=== PATIENT | female | born 1965 | race Two or more races ===

== ENCOUNTER 2020-09-08 21:39 | Emergency (ER) | payer MEDICAID ==
[~2020-09-08] VITALS: Ht 154.9 cm; Wt 68.0 kg
--- NOTE | 2020-09-08 22:20 | Emergency Room Report ---
History of Present Illness General Chief Complaint: To Be Triaged Source: Patient Present Illness [facility] This is a 55-year-old female with no past medical history. She presents with chief complaint of shortness of breath. Onset for the last 2 weeks. Only at night. She said it is worse when she lays down. No fever chills but no nausea no vomiting. No coughing. No chest pain. Better with sitting up. No sick contact. She has similar symptom in July. Allergies: Coded Allergies: No Known Allergies (Unverified , 09/08/20) Patient History Past Medical History: see triage record, old chart reviewed Past Surgical History: none Pertinent Family History: none Social History: Denies: smoking Now: No Immunizations: other Reviewed Nursing Documentation: PMH: Agreed; PSxH: Agreed Review of Systems Eye: Denies: eye pain, blurred vision ENT: Denies: ear pain, nose congestion, throat swelling Respiratory: Reports: shortness of breath; Denies: cough Cardiovascular: Denies: chest pain, palpitations Gastrointestinal: Denies: abdominal pain, diarrhea, nausea, vomiting Musculoskeletal: Denies: back pain, joint pain Skin: Denies: rash Neurological: Denies: headache, numbness Endocrine: Denies: increased thirst, increased urine Hematologic/Lymphatic: Denies: easy bruising All Other Systems: negative except mentioned in HPI Physical Exam Is unremarkable Sp02 EP Interpretation: reviewed, normal General Appearance: well appearing, no apparent distress, alert, obese Head: normocephalic, atraumatic Eyes: bilateral eye PERRL, bilateral eye EOMI ENT: hearing grossly normal, normal pharynx Neck: full range of motion, supple, no meningismus Respiratory: chest non-tender, lungs clear, normal breath sounds Cardiovascular #1: regular rate, rhythm, no murmur Gastrointestinal: normal bowel sounds, non tender, no mass, no organomegaly, no bruit, non-distended Musculoskeletal: back normal, normal range of motion, gait/station normal Psychiatric: mood/affect normal Medical Decision Making Diagnostic Impression: Primary Impression: Dyspnea Qualified Codes: R06.00 - Dyspnea, unspecified ER Course This patient presents with only dyspnea when laying down. This may be secondary to reflux or sleep apnea based on her body habitus. She is otherwise comfortable. No evidence of pneumonia, ACS, PE, dissection to name a few. Negative for Covid. Will discharge home. Chest X-Ray Diagnostic Results Chest X-Ray Diagnostic Results : Chest X-Ray Ordered: Yes # of Views/Limited/Complete: 1 View Indication: Shortness of Breath EP Interpretation: Yes Interpretation: no consolidation, no effusion, no pneumothorax, no acute c ardiopulmonary disease Impression: No acute disease Electronically Signed by: Adelso Levi MD Status: improved Disposition: HOME, SELF-CARE Condition: Stable Scripts Albuterol Sulfate (VENTOLIN HFA) 18 Gm Hfa.aer.ad 2 PUFFS INH EVERY 6 HOURS, #18 GM 0 Refills Prov: dAelso Levi MD 09/08/20 Additional Instructions: Follow-up with your doctor in 7 days. You may need a sleep study to rule out obstructive sleep apnea. Return if symptoms worsen. Adelso Levi MD Sep 08, 2020 22:20
--- NOTE | 2020-09-08 22:30 | NUR ---
ED Nurse Note: PAtient walked into the ED with c/o SOB onset 2 weeks ago. Patient stated s/sx is worse when lying down and only at night. Triage O2 sat 97% RA. Patient denies CP, fever/chills, n/v/d. Pt denies any contact with sick people. Patient is AAOx4 and ambulatory. VSS as documented
--- NOTE | 2020-09-08 22:40 | NUR ---
ED Nurse Note: Xray done. Rapid covid test sent
[2020-09-08 22:47] VITALS: BP 95/59
[2020-09-08] MEDS ORDERED: VENTOLIN HFA18 GM INH (23:07)
[2020-09-08 23:17] VITALS: BP 101/62
--- NOTE | 2020-09-08 23:17 | NUR ---
ER DISCHARGE NOTE: Patient is cleared to be discharged per ERMD, pt is aox4, on room air, with stable vital signs. pt was given dc and prescription instructions, pt was able to verbalize understanding, pt id band removed. pt is able to ambulate with steady gait. pt took all belongings.
--- NOTE | 2020-09-09 10:21 | Diagnostic Imaging Report ---
Procedure: XRAY Chest 1v Reason for study: Reason For Exam: SOB Comparison films: None. FINDINGS: A single one view chest is obtained. Vascularity is normal. The lung liriano are clear bilaterally. Cardiac and mediastinal silhouette are within normal limits. CP angles are sharp. The bony thorax appear unremarkable. IMPRESSION: NO ACUTE CARDIOPULMONARY DISEASE.
== END 2020-09-08 23:18 | disposition home or self-care (01) ==
LOC: EMR 22:07
DX: R06.00 Dyspnea, unspecified (principal)
CPT/HCPCS: 71045; U0002; Z7502; 99283